=== PATIENT | male | born 1965 | race Caucasian/White ===

== ENCOUNTER 2021-02-11 16:42 | Emergency (ER) | payer SELFPAY ==
[~2021-02-11] VITALS: Ht 170.2 cm; Wt 81.6 kg
[2021-02-11 16:42] VITALS: BP 132/91
--- NOTE | 2021-02-11 16:43 | NUR ---
BIBA to bed 08
--- NOTE | 2021-02-11 16:45 | NUR ---
Dr. Benavides is evaluating pt at bedside
[2021-02-11] MEDS ORDERED: NACL 0.9% 1,000 ML IV ONE ×2 (16:55→18:00)
--- NOTE | 2021-02-11 16:58 | NUR ---
# 16 FR Urinary catheter inserted utilizing sterile technique. Immediate return of 20 ml DARK YELLOW urine noted. Urine sample collected and sent to lab. Pt tolerated procedure WELL.
--- NOTE | 2021-02-11 17:08 | NUR ---
Blood sample collected, walked to lab and handed to CPT Cindy Addendum: 02/11/21 at 1712 by ESCOBAR Blood sample collected, walked to lab and handed to CPT Norma at [facility]
--- NOTE | 2021-02-11 17:08 | NUR ---
Patient transported to CT by inez
--- NOTE | 2021-02-11 17:13 | NUR ---
Approximately 51 y/o M BIBA found in front of liquor store slumped over for possible etoh/meth use. Per EMS, meth pipe with drugs found to R sock, 87% on room air placed onto 4L NC SpO2 95. EMS BS 129; AccuChek in triage 116. Pt placed into gown and traffic monitor specialist showing HR 117, SpO2 96% on 4L via NC. Patient responsive to voice commands, A&Ox3 to name/year/place. Bed locked in lowest position, side rails x 2 for pt safety. Security paged. PMH/Sx/Meds/Allergies: unknown
[2021-02-11 17:41] LABS: BASOPHILS # (AUTO) 0.1 K/uL (0.00-0.22); BASOPHILS % (AUTO) 0.4 % (0.0-2.0); EOSINOPHILS % (AUTO) 0.2 % (0.0-4.0); HEMATOCRIT 43.2 % (36-52); HEMOGLOBIN 14.4 g/dL (12.0-18.0); LYMPHOCYTES # (AUTO) 2.1 K/uL (2.0-11.5); LYMPHOCYTES % (AUTO) 14.9 % (20.5-51.1); MEAN CORPUSCULAR HEMOGLOBIN 27 pg (27-31); MEAN CORPUSCULAR HGB CONC 33 g/dL (33-37); MEAN CORPUSCULAR VOLUME 80.4 fL (80-94); MONOCYTES # (AUTO) 1.1 K/uL (0.8-1.0); MONOCYTES % (AUTO) 8.1 % (1.7-9.3); NEUTROPHILS # (AUTO) 10.6 K/uL (1.8-7.7); NEUTROPHILS % (AUTO) 76.4 % (42.2-75.2); PLATELET COUNT (AUTO) 310 K/uL (140-450); RED BLOOD CELL COUNT(AUTO) 5.38 MIL/uL (4.20-6.10); RED CELL DISTRIBUTION WIDTH 15.1 % (11.6-13.7); WHITE BLOOD COUNT (AUTO) 13.8 K/uL (4.8-10.8)
--- NOTE | 2021-02-11 17:55 | NUR ---
Dr. Benavides made aware of HR 117. New orders to be placed.
[2021-02-11 18:03] LABS: BARBITURATE, URINE NEGATIVE ng/ml (NEG <=200); BENZODIAZEPINE, URINE NEGATIVE ng/mL (NEG <=200); CANNABINOID, URINE NEGATIVE ng/mL (NEG <=50); COCAINE, URINE NEGATIVE ng/mL (NEG <=300); OPIATE, URINE NEGATIVE ng/mL (NEG <=2000); PHENCYCLIDINE SCREEN,URINE NEGATIVE ng/mL (NEG <=25)
--- NOTE | 2021-02-11 18:51 | NUR ---
Patient in semi-fowlers position denies any medical complaint. A&Ox4 at this time. Pt reports "I snorted meth 5 times." HR 117, SpO2 96% on 4L NC.
[2021-02-11 18:56] LABS: ALBUMIN 4.1 g/dL (3.4-5.0); ANION GAP 16.4 (8-16); ASPARTATE AMINOTRANSFERASE 56 U/L (15-37); CARBON DIOXIDE 25.1 mmol/L (21-32); CHLORIDE 100 mmol/L (98-107); CREATININE 0.7 mg/dL (0.6-1.3); GFR ARICAN-AMERICAN 151 mL/min (>90); GLUCOSE 126 mg/dL (74-106); POTASSIUM 3.5 mmol/L (3.5-5.1); SODIUM SERUM 138 mmol/L (136-145); TOTAL BILIRUBIN 1.1 mg/dL (0.0-1.0); UREA NITROGEN, BLOOD 12 mg/dL (7-18)
[2021-02-11 18:57] LABS: SALICYLATE < 2.8 mg/dL (2.8-20.0)
[2021-02-11 19:03] LABS: ACETAMINOPHEN < 0.5 ug/ml (10-30)
--- NOTE | 2021-02-11 19:14 | NUR ---
Report and transfer of care given to PREETHI Willingham
[2021-02-11 19:45] VITALS: BP 134/80
--- NOTE | 2021-02-11 19:45 | NUR ---
Patient discharged with v/s stable. Written and verbal after care instructions given and explained. Patient verbalized understanding. Ambulatory with steady gait. All questions addressed prior to discharge. Advised to follow up with PMD.
== END 2021-02-11 19:45 | disposition home or self-care (01) ==
LOC: MED 16:42
DX: F15.10 Other stimulant abuse, uncomplicated (principal); F12.10 Cannabis abuse, uncomplicated
CPT/HCPCS: 36415; 70450; 80053; 80305; 82553; 85025; 96360; 96361; 99285; G0480; J7030